=== PATIENT | male | born 1990 | race African-American/Black ===

== ENCOUNTER 2017-04-23 20:11 | Emergency (ER) | payer SELFPAY ==
[2017-04-23 20:51] LABS: #Basophils 0.1 thou/uL (0.0-0.2); #Eosinphils 0.2 thou/uL (0.0-0.7); #Lymphocytes 2.5 thou/uL (1.20-3.40); #Monocytes 0.4 thou/uL (0.11-0.59); %Eosinophils 3.2 % (0.0-10.0); Hematocrit 45.9 % (42.0-52.0); Mean Platelet Volume 7.9 fL (7.4-10.4); Red Blood Cell (RBC) Count 4.69 mill/uL (4.70-6.10); White Blood Cell (WBC) Count 6.2 thou/uL (4.8-10.8)
[2017-04-23 21:12] LABS: ALT (SGPT) 10 U/L (8-55); AST (SGOT) 13 U/L (5-34); Alkaline Phosphatase 63 U/L (40-150); Anion Gap 13 mmol/L (10-20); BUN (Urea Nitrogen) 11 mg/dL (8.9-20.6); Bilirubin, Total 0.4 mg/dL (0.2-1.2); Calc. Creatinine Clearance 0 mL/min (70-130); Calcium 9.5 mg/dL (7.8-10.44); Carbon Dioxide 28 mmol/L (22-29); Chloride 105 mmol/L (98-107); Estimated GFR-MDRD 85; Globulin 2.7 g/dL (2.4-3.5); Protein, Total 7.2 g/dL (6.0-8.3)
== END 2017-04-24 00:01 | disposition home or self-care (01) ==
LOC: ERS 20:11
DX: R55 Syncope and collapse (principal); R11.0 Nausea; F17.210 Nicotine dependence, cigarettes, uncomplicated
CPT/HCPCS: 36415; 80053; 85025; 93005; 96360

== ENCOUNTER 2018-11-25 18:55 | Emergency (ER) | payer SELFPAY ==
--- NOTE | 2018-11-25 20:27 | RAD ---
Radiograph left hand 3 views: 11/25/2018 FINDINGS: No acute fracture or dislocation. Metallic plate fixates the distal radius, incompletely imaged. IMPRESSION: 1. No acute fracture. 2. Status post open reduction internal fixation of radius.
[2018-11-25] MEDS ORDERED: Ketorolac Tromethamine 30 MG/ML VIAL ONE (20:41)
== END 2018-11-25 20:44 | disposition home or self-care (01) ==
LOC: ERS 18:55
DX: S63.502A Unspecified sprain of left wrist, initial encounter (principal); F17.210 Nicotine dependence, cigarettes, uncomplicated
CPT/HCPCS: 96372; J1885

== ENCOUNTER 2020-06-01 15:44 | Emergency (ER) | payer SELFPAY | END 2020-06-01 16:30 | disposition home or self-care (01) | LOC: ERS 15:44 | DX: M79.632 Pain in left forearm (principal); F17.210 Nicotine dependence, cigarettes, uncomplicated | CPT/HCPCS: 99281 ==

== ENCOUNTER 2020-09-14 10:23 | Emergency (ER) | payer SELFPAY | END 2020-09-14 11:51 | disposition home or self-care (01) | LOC: ERS 10:23 | DX: R09.1 Pleurisy (principal); F17.210 Nicotine dependence, cigarettes, uncomplicated | CPT/HCPCS: 71045; 93005 ==

== ENCOUNTER 2020-10-01 09:12 | Emergency (ER) | payer SELFPAY | END 2020-10-01 10:15 | disposition home or self-care (01) | LOC: ERS 09:12 | DX: R07.89 Other chest pain (principal); F17.210 Nicotine dependence, cigarettes, uncomplicated | CPT/HCPCS: 71045; 93005 ==

== ENCOUNTER 2020-12-28 17:31 | Emergency (ER) | payer SELFPAY | END 2020-12-28 18:08 | disposition home or self-care (01) | LOC: ERS 17:31 | DX: E86.0 Dehydration (principal); F17.210 Nicotine dependence, cigarettes, uncomplicated | CPT/HCPCS: 99281 ==

== ENCOUNTER 2021-01-12 17:14 | Emergency (ER) | payer SELFPAY ==
[2021-01-12] MEDS ORDERED: Ibuprofen 200 MG TAB ONE (17:40)
== END 2021-01-12 17:44 | disposition home or self-care (01) ==
LOC: ERS 17:14
DX: H92.02 Otalgia, left ear (principal); F17.210 Nicotine dependence, cigarettes, uncomplicated
CPT/HCPCS: 99282

== ENCOUNTER 2021-09-01 07:21 | Emergency (ER) | payer SELFPAY ==
[2021-09-01] MEDS ORDERED: Ibuprofen 200 MG TAB ONE (07:57)
== END 2021-09-01 09:05 | disposition home or self-care (01) ==
LOC: ERS 07:21
DX: R05.9 Cough, unspecified (principal); R06.02 Shortness of breath; R07.81 Pleurodynia; R11.2 Nausea with vomiting, unspecified; Z87.891 Personal history of nicotine dependence
CPT/HCPCS: 71045; 93005

== ENCOUNTER 2021-12-16 18:27 | Emergency (ER) | payer SELFPAY | END 2021-12-16 19:32 | disposition home or self-care (01) | LOC: ERS 18:27 | DX: K52.9 Noninfective gastroenteritis and colitis, unspecified (principal); F17.210 Nicotine dependence, cigarettes, uncomplicated | CPT/HCPCS: 99284 ==

== ENCOUNTER 2022-07-31 18:16 | Emergency (ER) | payer SELFPAY ==
[2022-07-31 20:23] LABS: SARS-CoV-2 NAA Rapid Test Not Detected (NotDetected)
== END 2022-07-31 19:37 | disposition home or self-care (01) ==
LOC: ERS 18:16
DX: J06.9 Acute upper respiratory infection, unspecified (principal); Z20.822 Contact with and (suspected) exposure to COVID-19; F17.210 Nicotine dependence, cigarettes, uncomplicated
CPT/HCPCS: 99283

== ENCOUNTER 2022-10-03 17:45 | Emergency (ER) | payer SELFPAY ==
[2022-10-03] MEDS ORDERED: Ondansetron ODT 4 MG TAB ONE (19:46)
[2022-10-03] MEDS ORDERED: Acetaminophen 500 MG TAB ONE (19:48)
== END 2022-10-03 21:00 | disposition home or self-care (01) ==
LOC: ERS 17:45
DX: R11.2 Nausea with vomiting, unspecified (principal); F17.210 Nicotine dependence, cigarettes, uncomplicated
CPT/HCPCS: 99283; Q0162

== ENCOUNTER 2023-08-09 19:45 | Emergency (ER) | payer SELFPAY ==
[2023-08-09 21:21] LABS: SARS-CoV-2 NAA Rapid Test Not Detected (NotDetected)
== END 2023-08-09 22:01 | disposition home or self-care (01) ==
LOC: ERS 19:45
DX: J02.9 Acute pharyngitis, unspecified (principal); F17.210 Nicotine dependence, cigarettes, uncomplicated
CPT/HCPCS: 87081; 87430; 99283

== ENCOUNTER 2024-01-21 18:04 | Emergency (ER) | payer SELFPAY ==
[2024-01-21] MEDS ORDERED: Ibuprofen 800 MG TAB ONE (19:03)
== END 2024-01-21 19:08 | disposition home or self-care (01) ==
LOC: ERS 18:04
DX: S62.312A Displaced fracture of base of third metacarpal bone, right hand, initial encounter for closed fracture (principal); S62.314A Displaced fracture of base of fourth metacarpal bone, right hand, initial encounter for closed fracture; S62.316A Displaced fracture of base of fifth metacarpal bone, right hand, initial encounter for closed fracture; F17.210 Nicotine dependence, cigarettes, uncomplicated; W22.01XA Walked into wall, initial encounter